=== PATIENT | male | born 1980 | race Two or more races ===

== ENCOUNTER 2017-12-22 14:15 | Emergency (ER) | payer SELFPAY ==
[~2017-12-22] VITALS: Ht 185.4 cm; Wt 84.0 kg
[2017-12-22 14:50] VITALS: BP 104/70
== END 2017-12-22 17:51 | disposition left against medical advice (07) ==
LOC: ER 14:15
DX: S60.511A Abrasion of right hand, initial encounter (principal); S90.812A Abrasion, left foot, initial encounter; S80.222A Blister (nonthermal), left knee, initial encounter; F12.10 Cannabis abuse, uncomplicated; F14.10 Cocaine abuse, uncomplicated; X58.XXXA Exposure to other specified factors, initial encounter; Y93.89 Activity, other specified; Y92.89 Other specified places as the place of occurrence of the external cause; Y99.8 Other external cause status
CPT/HCPCS: 99281

== ENCOUNTER 2017-12-22 20:32 | Emergency (ER) | payer SELFPAY ==
[~2017-12-22] VITALS: Ht 185.4 cm; Wt 84.0 kg
[2017-12-23] MEDS ORDERED: SULFAMETHOXAZOLE/TRIMETHOPRIM 800/160MG TABLET PO ONE (03:00)
[2017-12-23] MEDS ORDERED: CEPHALEXIN 500MG CAPSULE PO ONE (03:00)
[2017-12-23 04:00] VITALS: BP 118/76
== END 2017-12-23 04:10 | disposition home or self-care (01) ==
LOC: ER 20:32
DX: L08.9 Local infection of the skin and subcutaneous tissue, unspecified (principal)
CPT/HCPCS: 99283